=== PATIENT | male | born 1960 | race Two or more races ===

== ENCOUNTER 2020-05-19 11:38 | Emergency (ER) | payer MEDICARE, MEDICAID ==
[~2020-05-19] VITALS: Ht 170.2 cm; Wt 120.0 kg
[~2020-05-19 11:38] MED LIST: ATEN-169 PO; BUPR1FIL3 SL; NAPROXEN PO; OMEP20TA23 PO
[2020-05-19 12:21] LABS: BASOPHILS % (AUTO) 1.2 % (0-1); EOSINOPHILS # (AUTO) 0.1 X10'3 (0-0.9); EOSINOPHILS % (AUTO) 2.1 % (0-6); HEMATOCRIT 40.6 % (42.0-52.0); HEMOGLOBIN 13.7 g/dl (14.0-17.9); LYMPHOCYTES # (AUTO) 1.1 X10'3 (1.1-4.8); LYMPHOCYTES % (AUTO) 29.1 % (21-51); MEAN CORPUSCULAR HEMOGLOBIN 33.8 PG (27.0-31.0); MEAN CORPUSCULAR HGB CONC 33.7 g/dL (33.0-36.5); MEAN CORPUSCULAR VOLUME 100.4 FL (78-98); MEAN PLATELET VOLUME 7.7 FL (7.4-10.4); MONOCYTES # (AUTO) 0.3 X10'3 (0-0.9); MONOCYTES % (AUTO) 8.8 % (2-12); NEUTROPHILS # (AUTO) 2.2 X10'3 (1.8-7.7); NEUTROPHILS % (AUTO) 58.8 % (42-75); PLATELET COUNT 124 X10'3 (140-440); RED BLOOD COUNT 4.04 X10'6 (4.70-6.10); RED CELL DISTRIBUTION WIDTH 14.6 % (11.5-14.5); WHITE BLOOD COUNT 3.7 X10'3 (4.5-11.0)
[2020-05-19 12:35] LABS: ALANINE AMINOTRANSFERASE 69 U/L (12-78); ALBUMIN 3.5 G/DL (3.4-5.0); ALBUMIN/GLOBULIN RATIO 0.9 (1.1-1.5); ALKALINE PHOSPHATASE 223 IU/L (46-116); ANION GAP 6 (8-16); ASPARTATE AMINO TRANSFERASE 64 U/L (10-37); BILIRUBIN,TOTAL 0.7 MG/DL (0.1-1.0); BLOOD UREA NITROGEN 10 MG/DL (7-18); BUN/CREATININE RATIO 13.5 (5.4-32.0); CALCIUM 8.7 MG/DL (8.5-10.1); CHLORIDE 103 MMOL/L (99-107); CREATININE 0.74 MG/DL (0.60-1.10); GLUCOSE 294 MG/DL (70-104); LIPASE 349 U/L (73-393); POTASSIUM 3.5 MMOL/L (3.5-5.1); SODIUM 138 MMOL/L (135-145); TOTAL CARBON DIOXIDE 29.3 MMOL/L (24-32); TOTAL PROTEIN 7.2 G/DL (6.4-8.2); eGFR > 90 ML/MIN
[2020-05-19] MEDS ORDERED: AMOX-422 PO (13:26)
[2020-05-19] MEDS ORDERED: AZIT250T82 PO (13:26)
[2020-05-19 13:54] VITALS: BP 131/73
== END 2020-05-19 13:44 | disposition home or self-care (01) ==
LOC: ER 11:39
DX: J18.9 Pneumonia, unspecified organism (principal); R04.2 Hemoptysis; R13.19 Other dysphagia; I10 Essential (primary) hypertension; F17.200 Nicotine dependence, unspecified, uncomplicated; Z72.89 Other problems related to lifestyle; Z79.2 Long term (current) use of antibiotics; Z79.899 Other long term (current) drug therapy
CPT/HCPCS: 36415; 71045; 80053; 83690; 85025; 99284

== ENCOUNTER 2020-10-25 21:44 | Emergency (ER) | payer MEDICARE, MEDICAID ==
[~2020-10-25] VITALS: Ht 170.2 cm; Wt 105.4 kg
[2020-10-25] MEDS ORDERED: normal saline 1000ML IV soln IVB ONE (22:20)
[2020-10-25] MEDS ORDERED: ondansetron/PF 4mg/2ml inj IV ONE ×2 (22:45→23:45)
[2020-10-25 23:08] LABS: BASOPHILS % (AUTO) 0.3 % (0-1); EOSINOPHILS # (AUTO) 0.1 X10'3 (0-0.9); EOSINOPHILS % (AUTO) 1.3 % (0-6); HEMATOCRIT 42.1 % (42.0-52.0); HEMOGLOBIN 14.4 g/dl (14.0-17.9); LYMPHOCYTES # (AUTO) 0.5 X10'3 (1.1-4.8); LYMPHOCYTES % (AUTO) 6.8 % (21-51); MEAN CORPUSCULAR HEMOGLOBIN 33.9 PG (27.0-31.0); MEAN CORPUSCULAR HGB CONC 34.3 g/dL (33.0-36.5); MEAN CORPUSCULAR VOLUME 98.9 FL (78-98); MEAN PLATELET VOLUME 8.1 FL (7.4-10.4); MONOCYTES # (AUTO) 0.3 X10'3 (0-0.9); MONOCYTES % (AUTO) 4.2 % (2-12); NEUTROPHILS # (AUTO) 5.9 X10'3 (1.8-7.7); NEUTROPHILS % (AUTO) 87.4 % (42-75); PLATELET COUNT 142 X10'3 (140-440); RED BLOOD COUNT 4.25 X10'6 (4.70-6.10); RED CELL DISTRIBUTION WIDTH 15.7 % (11.5-14.5); WHITE BLOOD COUNT 6.8 X10'3 (4.5-11.0)
[2020-10-25 23:15] LABS: ALANINE AMINOTRANSFERASE 41 U/L (12-78); ALBUMIN 3.6 G/DL (3.4-5.0); ALBUMIN/GLOBULIN RATIO 0.9 (1.1-1.5); ALKALINE PHOSPHATASE 166 IU/L (46-116); ANION GAP 11 (8-16); ASPARTATE AMINO TRANSFERASE 50 U/L (10-37); BLOOD UREA NITROGEN 15 MG/DL (7-18); BUN/CREATININE RATIO 19.2 (5.4-32.0); CALCIUM 8.7 MG/DL (8.5-10.1); CHLORIDE 104 MMOL/L (99-107); CREATININE 0.78 MG/DL (0.60-1.10); GLUCOSE 149 MG/DL (70-104); LIPASE 210 U/L (73-393); MAGNESIUM 1.8 MG/DL (1.5-2.4); POTASSIUM 4.2 MMOL/L (3.5-5.1); SODIUM 140 MMOL/L (135-145); TOTAL CARBON DIOXIDE 25.5 MMOL/L (24-32); TOTAL PROTEIN 7.5 G/DL (6.4-8.2); eGFR > 90 ML/MIN
[2020-10-25] MEDS ORDERED: proCHLORperazine 10 MG/2 ml inj IV ONE (23:45)
[2020-10-25] MEDS ORDERED: ketorolac trometh. 30mg/ml inj. IV ONE (23:45)
[2020-10-25] MEDS ORDERED: normal saline 1000ml 1,000 ML IV ONE (23:50)
[2020-10-25 23:58] LABS: CLARITY,URINE CLEAR (Clear); COLOR,URINE YELLOW (Yellow); GLUCOSE, URINE NEGATIVE (Neg); KETONES,URINE NEGATIVE (Neg); LEUKOCYTE ESTERASE ,URINE NEGATIVE (Neg); NITRITES, URINE NEGATIVE (Neg); OCCULT BLOOD,URINE NEGATIVE (Neg); PROTEIN,URINE NEGATIVE (Neg); UA COLLECTION TYPE CLN CATCH MIDSTREAM; UROBILINOGEN,URINE 0.2 E.U/dL (0.2-1.0)
[2020-10-26 00:17] VITALS: BP 120/67
[2020-10-26] MEDS ORDERED: ONDA4TAB6 PO (00:46)
== END 2020-10-26 01:11 | disposition home or self-care (01) ==
LOC: ER 21:50
DX: K52.9 Noninfective gastroenteritis and colitis, unspecified (principal); I10 Essential (primary) hypertension; Z72.89 Other problems related to lifestyle; Z79.899 Other long term (current) drug therapy
CPT/HCPCS: 36415; 80053; 81003; 83690; 83735; 84484; 85025; 96361; 96374; 96375; 96376; 99284; J0780; J1885; J2405; J7030

== ENCOUNTER 2020-11-14 12:20 | Emergency (ER) | payer MEDICARE, MEDICAID ==
[~2020-11-14] VITALS: Ht 170.2 cm; Wt 106.9 kg
[~2020-11-14 12:20] MED LIST changes: +ONDA4TAB6 PO
[2020-11-14 14:33] LABS: BASOPHILS % (AUTO) 0.7 % (0-1); EOSINOPHILS # (AUTO) 0.1 X10'3 (0-0.9); EOSINOPHILS % (AUTO) 2.3 % (0-6); HEMATOCRIT 38.7 % (42.0-52.0); HEMOGLOBIN 13.1 g/dl (14.0-17.9); LYMPHOCYTES # (AUTO) 1.2 X10'3 (1.1-4.8); LYMPHOCYTES % (AUTO) 28.4 % (21-51); MEAN CORPUSCULAR HEMOGLOBIN 33.7 PG (27.0-31.0); MEAN CORPUSCULAR HGB CONC 33.9 g/dL (33.0-36.5); MEAN CORPUSCULAR VOLUME 99.4 FL (78-98); MEAN PLATELET VOLUME 7.6 FL (7.4-10.4); MONOCYTES # (AUTO) 0.4 X10'3 (0-0.9); MONOCYTES % (AUTO) 10.3 % (2-12); NEUTROPHILS # (AUTO) 2.5 X10'3 (1.8-7.7); NEUTROPHILS % (AUTO) 58.3 % (42-75); PLATELET COUNT 140 X10'3 (140-440); RED CELL DISTRIBUTION WIDTH 15.1 % (11.5-14.5); WHITE BLOOD COUNT 4.3 X10'3 (4.5-11.0)
[2020-11-14 14:48] LABS: ALANINE AMINOTRANSFERASE 51 U/L (12-78); ALBUMIN 3.5 G/DL (3.4-5.0); ALBUMIN/GLOBULIN RATIO 0.9 (1.1-1.5); ALKALINE PHOSPHATASE 173 IU/L (46-116); ANION GAP 8 (8-16); ASPARTATE AMINO TRANSFERASE 52 U/L (10-37); BILIRUBIN,TOTAL 0.5 MG/DL (0.1-1.0); BLOOD UREA NITROGEN 13 MG/DL (7-18); CALCIUM 8.8 MG/DL (8.5-10.1); CHLORIDE 104 MMOL/L (99-107); CREATININE 0.65 MG/DL (0.60-1.10); GLUCOSE 101 MG/DL (70-104); POTASSIUM 4.1 MMOL/L (3.5-5.1); SODIUM 142 MMOL/L (135-145); TOTAL PROTEIN 7.2 G/DL (6.4-8.2); eGFR > 90 ML/MIN
[2020-11-14] MEDS ORDERED: iohexol 350MG/ML 100ml bottle IV ONE (15:48)
[2020-11-14] MEDS ORDERED: iohexol 350 MG/ML 50ML vial IV ONE (15:48)
--- NOTE | 2020-11-14 15:53 | NUR ---
PIV ESTABLISHED FOR CTA. PT TAKEN TO CT VIA W/C BY TECH.
--- NOTE | 2020-11-14 15:54 | NUR ---
To CT at this time via wheelchair.
[2020-11-14 17:28] LABS: CLARITY,URINE CLEAR (Clear); COLOR,URINE YELLOW (Yellow); GLUCOSE, URINE NEGATIVE (Neg); KETONES,URINE NEGATIVE (Neg); LEUKOCYTE ESTERASE ,URINE NEGATIVE (Neg); NITRITES, URINE NEGATIVE (Neg); OCCULT BLOOD,URINE NEGATIVE (Neg); PH,URINE 6.5 (4.8-8.0); PROTEIN,URINE NEGATIVE (Neg); UROBILINOGEN,URINE 0.2 E.U/dL (0.2-1.0)
[2020-11-14 17:31] LABS: UA COLLECTION TYPE VOIDED
[2020-11-14 18:40] VITALS: BP 140/85
== END 2020-11-14 18:41 | disposition home or self-care (01) ==
LOC: ER 12:22
DX: R04.2 Hemoptysis (principal); R13.10 Dysphagia, unspecified; J02.9 Acute pharyngitis, unspecified; I10 Essential (primary) hypertension; Z86.19 Personal history of other infectious and parasitic diseases; Z98.890 Other specified postprocedural states; Z72.89 Other problems related to lifestyle; Z79.899 Other long term (current) drug therapy
CPT/HCPCS: 36415; 70491; 71045; 71275; 80053; 81003; 85025; 99285; Q9967

== ENCOUNTER 2023-05-23 12:41 | Outpatient (CLI) | payer MEDICAID, MEDICARE | END 2023-05-23 23:59 | disposition home or self-care (01) | LOC: RAD 12:41 | PROVIDERS: ATTEND Internal Medicine Gastroenterology | DX: R13.10 Dysphagia, unspecified (principal) | CPT/HCPCS: 74220 ==

== ENCOUNTER 2024-06-06 08:03 | Day surgery (SDC) | payer MEDICARE, MEDICAID ==
[~2024-06-06] VITALS: Ht 170.2 cm; Wt 86.4 kg
[2024-06-06] MEDS ORDERED: NALO4SPR22 (08:20)
[2024-06-06] MEDS ORDERED: CARV-50 PO (08:20)
[2024-06-06] MEDS ORDERED: ATOR10TA70 PO (08:20)
[2024-06-06] MEDS ORDERED: EMPA25TA PO (08:20)
[2024-06-06] MEDS ORDERED: SEMA2PEN (08:20)
[2024-06-06] MEDS ORDERED: BUPR1FIL20 (08:20)
[2024-06-06] MEDS ORDERED: AMIT100T76 (08:20)
[2024-06-06] MEDS ORDERED: FLO0.4C (08:20)
[2024-06-06] MEDS ORDERED: PANT40TA54 PO (08:20)
[2024-06-06 08:30] VITALS: BP 138/74; PULSE 67; RESP 13; TEMP 97.2
[2024-06-06] MEDS ORDERED: fentaNYL/PF 50MCG/1 ML 2ML syringe ONE (09:22)
[2024-06-06] MEDS ORDERED: midazolam 1 mg/ML 2ml injection ONE (09:23)
[2024-06-06] MEDS ORDERED: propofol inj 20 ML IV ONE (09:26)
[2024-06-06 09:36] VITALS: BP 114/71; PULSE 66; RESP 17; O2SAT 100
[2024-06-06 09:45] VITALS: BP 117/71; PULSE 66; RESP 15; O2SAT 100
[2024-06-06 09:55] VITALS: BP 121/71; PULSE 71; RESP 12; O2SAT 92
[2024-06-06 10:04] VITALS: BP 114/67; PULSE 72; RESP 15; O2SAT 94
== END 2024-06-06 10:19 | disposition home or self-care (01) ==
LOC: GI LAB 08:03
PROVIDERS: ATTEND Internal Medicine Gastroenterology
DX: I85.00 Esophageal varices without bleeding (principal); I10 Essential (primary) hypertension; Z87.891 Personal history of nicotine dependence
CPT/HCPCS: 43235; J2250; J2704; J3010; J7030

== ENCOUNTER 2024-07-20 07:21 | Day surgery (SDC) | payer MEDICARE, MEDICAID ==
[~2024-07-20] VITALS: Ht 170.2 cm; Wt 90.9 kg
[~2024-07-20 07:21] MED LIST changes: +AMIT100T76; -ATEN-169 PO; +ATOR10TA70 PO; +CARV-50 PO; +EMPA25TA PO; +FLO0.4C; +NALO4SPR22; -NAPROXEN PO; -OMEP20TA23 PO; -ONDA4TAB6 PO; +PANT40TA54 PO; +SEMA2PEN
[2024-07-20 07:42] VITALS: BP 130/70; PULSE 76; RESP 18
[2024-07-20] MEDS ORDERED: propofol inj 20 ML IV ONE (08:25)
[2024-07-20 08:35] VITALS: BP 109/69; PULSE 67; RESP 14; O2SAT 95
[2024-07-20 08:45] VITALS: BP 108/64; PULSE 68; RESP 13; O2SAT 95
[2024-07-20] MEDS ORDERED: LIDOcaine 1%/PF 5ML 10 MG/ML VIAL ONE (08:46)
[2024-07-20 08:55] VITALS: BP 113/72; PULSE 70; RESP 13; O2SAT 94
[2024-07-20 09:05] VITALS: BP 125/66; PULSE 68; RESP 14; O2SAT 95
== END 2024-07-20 09:10 | disposition home or self-care (01) ==
LOC: GI LAB 07:21
PROVIDERS: ATTEND Internal Medicine Gastroenterology
DX: I85.00 Esophageal varices without bleeding (principal); K74.69 Other cirrhosis of liver; I10 Essential (primary) hypertension; E11.9 Type 2 diabetes mellitus without complications; G47.33 Obstructive sleep apnea (adult) (pediatric); Z87.891 Personal history of nicotine dependence; Z79.899 Other long term (current) drug therapy
CPT/HCPCS: 43235; A4620; J2704; J3490; J7030; Z7512